=== PATIENT | male | born 1980 | race Caucasian/White ===

== ENCOUNTER → 2017-11-06 14:41 | Outpatient (CLI) | payer OTHER, SELFPAY ==
--- NOTE | 2017-11-06 | DI.MRI.S_ITS ---
PROCEDURE: MR KNEE LT WO/W CON INDICATIONS: LEFT KNEE PAIN TECHNIQUE: Noncontrast sagittal PD fast spin echo and T2 fast spin echo with fat saturation, sagittal 3-D FLASH with fat saturation; coronal T1 spin echo and PD fast spin echo with fat saturation, and axial T1 spin echo and PD fast spin echo with fat saturation through the knee. Post-contrast axial, coronal, and sagittal T1 spin echo with fat saturation through the knee. COMPARISON: [facility], MR, LOWER EXTREM. T WO CONTRAST, 10/19/2009, 19:03. FINDINGS: Image quality: Excellent. Menisci: The medial meniscus is truncated consistent with meniscectomy. There is horizontal tear of the posterior horn of the medial meniscus. There is complex tear of the anterior horn of the lateral meniscus. Intrasubstance degeneration is present, involving the posterior horn of the lateral meniscus. The meniscal root ligaments appear intact. Cruciate ligaments: There is partial tear of the anterior cruciate ligament which is thickened and demonstrates mild increased signal suggesting scarring. The posterior cruciate ligament is intact. Medial structures: The medial collateral ligament appears intact. The posterior oblique ligament, semimembranosus tendon insertions, and oblique popliteal liagment, and meniscocapsular junction appear intact. Visualized portions of the pes anserinus tendons appear normal. No abnormal bursal fluid. Lateral structures: The lateral collateral ligament, long and short heads of the biceps femoris tendon appear intact. The popliteus tendon appears normal; the popliteofibular ligament appears intact. The posterosuperior and anteroinferior popliteomeniscal fascicles appear intact. The arcuate and fabellofibular ligaments appear intact, around the lateral inferior geniculate artery. Iliotibial band appears normal. Anterior structures: The quadriceps and patellar tendons appear intact. Patellar alignment is normal. No femoral trochlear dysplasia or ventral trochlear prominence. No edema in the infrapatellar fat pad. Bones and cartilage: No suspicious osseous enhancement. No bone marrow contusions or fractures. The cartilage of the medial and lateral femorotibial compartments, as well as the patellofemoral compartment, appears normal in thickness. Joint space: There is small knee joint fluid. Tiny Bellamy's cyst. Normal appearing synovial plicae are incidentally noted. No suspicious soft tissue enhancement. IMPRESSION: 1. Meniscectomy of the medial meniscus. There is a small residual or recurrent horizontal tear involving the posterior horn medial meniscus. 2. Complex tear of the anterior horn of the lateral meniscus. 3. 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 4. Partial tear and scarring of the anterior cruciate ligament. 5. Trace knee joint effusion. Dictated by: Precious Donato M.D. on 11/06/2017 at 15:31 Approved by: Precious Donato M.D. on 11/07/2017 at 9:47
== END ==
PROVIDERS: PCP Physician Assistant; Visit Provider Family Medicine
DX: S83.272A Complex tear of lateral meniscus, current injury, left knee, initial encounter (principal); S83.242A Other tear of medial meniscus, current injury, left knee, initial encounter; S83.512A Sprain of anterior cruciate ligament of left knee, initial encounter; M25.562 Pain in left knee
CPT/HCPCS: 73723; A9579